=== PATIENT | female | born 1965 | race Caucasian/White ===

== ENCOUNTER 2017-04-09 09:32 | Day surgery (SDC) | payer MEDICAID ==
[~2017-04-09 09:32] MED LIST: Midazolam 1 MG/ML 2 ML SDV ONE; Propofol 200 MG/20 ML SDV ONE; fentaNYL 100 MCG/2 ML SDV ONE
[2017-04-09] MEDS ORDERED: Dextrose 5%-Lactated Ringers 1,000 ML IV SCH (10:00)
[2017-04-09] MEDS ORDERED: Glycopyrrolate 0.2 MG/ML 2 ML SDV IVPUSH ONE (10:30)
[2017-04-09 13:38] VITALS: BP 115/83
--- NOTE | 2017-04-15 09:18 | OR ---
DATE OF PROCEDURE: 04/09/2017 PREOPERATIVE DIAGNOSIS: Weight regain status post Alf-en-Y gastric bypass. POSTOPERATIVE DIAGNOSES: Weight regain status post Alf-en-Y gastric bypass associated with large gastric pouch, gastrojejunostomy, and gastrogastric fistula. OPERATIVE PROCEDURE: Upper GI endoscopy with biopsies of gastric pouch for CLOtest. ANESTHESIA: IV sedation. INDICATION FOR PROCEDURE: This is a 52-year-old female presenting with a history of weight regain status post previous Alf-en-Y gastric bypass. Gastric bypass was done in [place], [place], in 2003. Preoperatively, she weighed 368 pounds and initially had a good result. She was down as low as 129 pounds. This weight is from 02/2012. Over the last year, she had progressive increase in her weight and, presently, with a weight of 305 pounds with a height of 5 feet 4 inches, giving her body mass index of 35.2. The plan is to proceed with an upper GI endoscopy with biopsies as indicated. Potential risks including bleeding and perforation were discussed, and the patient wishes to proceed. DETAILS OF PROCEDURE: The patient was taken to the operating room and placed in a left lateral decubitus position. IV sedation was administered, after which the upper GI endoscope was passed orally through the length of the esophagus and from there into the gastric pouch. The gastric pouch was noted to be markedly enlarged, measuring 11 cm from the gastrojejunostomy to the esophagogastric junction. The gastrojejunostomy was also slightly enlarged. 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 Biopsies were obtained from the gastric pouch and sent for CLOtest for H. pylori. Minimal bleeding from the biopsy sites was seen, and the procedure then concluded. There were no evident complications. The patient appeared to have an anatomic deficiency in terms of her gastric bypass status with large gastric pouch and gastrojejunostomy, as well as a gastrogastric fistula with previous good result, and at present ongoing weight regain. Re-visional procedure appeared to be working. Her insurance carrier will be contacted regarding prior authorization. Junior Bliss MD /[id number]
== END 2017-04-09 13:30 | disposition home or self-care (01) ==
LOC: JP.SDS 09:32
PROVIDERS: ATTEND Surgery
DX: K95.89 Other complications of other bariatric procedure (principal); K31.6 Fistula of stomach and duodenum; Z98.84 Bariatric surgery status
CPT/HCPCS: 43239; 87081; J2250; J2704; J3010; J7042; J3490

== ENCOUNTER 2017-06-11 06:39 | Inpatient (IN) | payer MEDICAID ==
[2017-06-11] MEDS ORDERED: cefOXitin 2 GM Vial ONE (06:45)
[2017-06-11] MEDS ORDERED: Gabapentin 300 MG Cap PO ONE (07:00)
[2017-06-11] MEDS ORDERED: Scopolamine 1.5 MG Transdermal Patch TOP SCH (07:00)
[2017-06-11] MEDS ORDERED: Dextrose 5%-Lactated Ringers 1,000 ML IV SCH (07:00)
[2017-06-11] MEDS ORDERED: Acetaminophen 500 MG Tab PO ONE (07:00)
[2017-06-11] MEDS ORDERED: Celecoxib 200 MG Cap PO ONE (07:00)
[2017-06-11] MEDS ORDERED: Midazolam 1 MG/ML 2 ML SDV ONE (07:55)
[2017-06-11] MEDS ORDERED: fentaNYL 250 MCG/5 ML SDV ONE (07:55)
[2017-06-11] MEDS ORDERED: Glycopyrrolate 0.2 MG/ML 5 ML MDV ONE (07:56)
[2017-06-11] MEDS ORDERED: Dexamethasone 4 MG/ML SDV ONE (07:56)
[2017-06-11] MEDS ORDERED: Rocuronium 50 MG/5 ML Vial ONE ×2 (07:56→09:46)
[2017-06-11] MEDS ORDERED: Neostigmine Methylsulfate 1 MG/ML 5 ML Syringe ONE (07:56)
[2017-06-11] MEDS ORDERED: Ondansetron 4 MG/2 ML SDV ONE (07:56)
[2017-06-11] MEDS ORDERED: Succinylcholine 200 MG/10 ML MDV ONE (07:56)
[2017-06-11] MEDS ORDERED: Propofol 200 MG/20 ML SDV ONE (07:56)
[2017-06-11] MEDS: cefOXitin 2 GM in Sodium Chloride 0.9% 50 ML IV ONE ×2 (08:35→14:07)
[2017-06-11] MEDS ORDERED: Ketamine 500 MG/5 ML MDV IV ONE (09:00)
[2017-06-11] MEDS ORDERED: Lidocaine 2% 100 MG/5 ML Syringe IVPUSH ONE (09:00)
[2017-06-11] MEDS ORDERED: Ropivacaine 48 ML, Dexamethasone 8 MG, EPINEPHrine 0.4 MG, Sodium Chloride 0.9% 29.6 ML NERVRT ONE ×4 (09:00)
[2017-06-11] MEDS ORDERED: Lactated Ringers 1,000 ML ONE (11:05)
[2017-06-11] MEDS ORDERED: fentaNYL 100 MCG/2 ML SDV ONE (11:16)
[2017-06-11] MEDS ORDERED: HYDROmorphone/Normal Saline 15 MG/30 ML PCA IV PRN ×2 (11:30→14:06)
[2017-06-11] MEDS ORDERED: Naloxone 0.4 MG/ML SDV IV PRN (11:30)
[2017-06-11] MEDS ORDERED: hydrOXYzine HCl 100 MG/2 ML SDV IM ONE ×2 (11:42→12:53)
[2017-06-11] MEDS ORDERED: LORazepam 2 MG/ML MDV IVPUSH PRN (11:46)
[2017-06-11] MEDS ORDERED: Meperidine PF 100 MG/ML Syringe IM ONE (12:53)
[2017-06-11] MEDS ORDERED: Cyclobenzaprine 10 MG Tab PO PRN (13:37)
[2017-06-11] MEDS ORDERED: Labetalol 20 MG/4 ML Syringe IVPUSH PRN (14:00)
[2017-06-11] MEDS ORDERED: diphenhydrAMINE 50 MG/ML SDV IVPUSH PRN (14:00)
[2017-06-11] MEDS ORDERED: hydrOXYzine HCl 100 MG/2 ML SDV IM PRN (14:00)
[2017-06-11] MEDS ORDERED: Metoclopramide 10 MG/2 ML SDV IVPUSH PRN (14:00)
[2017-06-11] MEDS ORDERED: Ondansetron 4 MG/2 ML SDV IVPUSH PRN (14:00)
[2017-06-11] MEDS: Lidocaine 0.4%/D5W 2 GM/500 ML BAG IV SCH (14:07)
[2017-06-11] MEDS: Gabapentin 250 MG/5 ML Solution ML 470 ML Bottle PO SCH ×2 (14:11→20:20)
[2017-06-11] MEDS: cefOXitin 2 GM in Sodium Chloride 0.9% 50 ML IV SCH ×2 (14:12→20:20)
[2017-06-11] MEDS: Pantoprazole 40 MG Vial IVPUSH SCH (15:52)
[2017-06-11] MEDS: Acetaminophen Soln 650 MG/20.3 ML UD Cup PO SCH ×2 (15:52→22:06)
[2017-06-11] MEDS ORDERED: MVI, Adult with Vitamin K 10 ML, Thiamine 200 MG, Chromium/Copper/Mang/Selen/Zn 1 ML in... IV SCH ×4 (16:00)
[2017-06-11] MEDS: Heparin Sodium 5,000 Units/ML Vial SUBCUT SCH (17:31)
[2017-06-11] MEDS: Dextrose 5%-Lactated Ringers 1,000 ML IV SCH (22:10)
[2017-06-12] MEDS: Lidocaine 0.4%/D5W 2 GM/500 ML BAG IV SCH (01:25)
[2017-06-12] MEDS: cefOXitin 2 GM in Sodium Chloride 0.9% 50 ML IV SCH ×4 (01:28→20:03)
[2017-06-12] MEDS ORDERED: methylPREDNISolone Sodium Succinate 125 MG/2 ML SDV IVPUSH ONE (02:00)
[2017-06-12] MEDS ORDERED: Iohexol 647 MG/ML 50 ML SDV PO STA (02:16)
[2017-06-12] MEDS: Acetaminophen Soln 650 MG/20.3 ML UD Cup PO SCH ×3 (03:12→16:59)
[2017-06-12] MEDS: Dextrose 5%-Lactated Ringers 1,000 ML IV SCH (05:00)
[2017-06-12] MEDS: Heparin Sodium 5,000 Units/ML Vial SUBCUT SCH ×2 (05:27→18:12)
[2017-06-12] MEDS ORDERED: Dextrose 5%-Lactated Ringers 1,000 ML IV SCH (07:30)
[2017-06-12] MEDS ORDERED: traZODone 50 MG Tab PO PRN (07:32)
[2017-06-12] MEDS ORDERED: hydrOXYzine HCl 25 MG Tab PO PRN (07:32)
[2017-06-12] MEDS: Celecoxib 200 MG Cap PO SCH (08:05)
--- NOTE | 2017-06-12 08:20 | PN ---
DATE OF SERVICE: 06/12/2017 SUBJECTIVE: Faith is postop day #1. She is on IM naltrexone. Pain was difficult to control in the beginning, but now with the CURTAIN WORKER, she has been very comfortable. She has been up ambulating and is on a step-1 gastric bypass diet. Dowell was discontinued this a.m. REVIEW OF SYSTEMS: Remainder of review of systems negative for any pertinent positives and negatives. OBJECTIVE: GENERAL: Faith Pickard is a pleasant 52-year-old female. VITAL SIGNS: TPR is 98.8, 65, 16, and blood pressure 100/63. HEENT: Negative. NECK: Supple. HEART: Regular rate and rhythm. LUNGS: Clear. ABDOMEN: Dressings dry and intact. Abdominal binder is on. IDA drain #1 has put out 7 mL and IDA drain #2 has put out 65 mL of a light pink serosanguineous drainage. EXTREMITIES: SCDs are on. There is no peripheral edema. ASSESSMENT: Open revision of Alf-en-Y gastric bypass surgery including closure of gastrogastric fistula, repair of incarcerated incisional hernia with mesh, suture and sealant to divided area of left lobe of liver for recurrent morbid obesity associated with enlarged gastrogastric pouch and gastrogastric fistula, incarcerated incisional hernia, divided edge of left lobe of liver secondary to takedown of adhesions. Date of surgery, 06/11/2017. PLAN: 1. Decrease IV to 100 mL/hour. 2. Step-2 gastric bypass diet without cereal. 3. To start Estrace vaginal cream, one applicator per vaginal. 4. Prozac 60 mg daily. 5. Hydroxyzine 50 mg p.o. b.i.d. p.r.n. 6. Trazodone 50 mg at bedtime p.r.n. sleep. 7. Good pulmonary toilet. 8. We will evaluate p.r.n. or in a.m. Rosario Bonds PA-C /[id number]
[2017-06-12] MEDS: FLUoxetine 20 MG Cap PO SCH (09:03)
[2017-06-12] MEDS: SCOPOLAMINE PATCH CHECK TOP SCH (09:04)
[2017-06-12] MEDS: Gabapentin 250 MG/5 ML Solution ML 470 ML Bottle PO SCH ×3 (09:06→20:04)
--- NOTE | 2017-06-12 09:16 | CR ---
UGI wo KUB HISTORY: Evaluate Alf-en-Y COMPARISON: None FINDINGS: Contrast is seen in the gastric remnant. On the last images contrast flows to the small bow el past the distal anastomosis of the Alf-en-Y. No extravasation or obstruction seen.
[2017-06-12] MEDS: ESTRADIOL VAG SCH (13:24)
[2017-06-12] MEDS ORDERED: MVI, Adult with Vitamin K 10 ML, Thiamine 200 MG, Chromium/Copper/Mang/Selen/Zn 1 ML in... IV SCH ×4 (16:00)
[2017-06-12] MEDS: Pantoprazole 40 MG Vial IVPUSH SCH (16:59)
[2017-06-13] MEDS: Acetaminophen Soln 650 MG/20.3 ML UD Cup PO SCH ×5 (00:23→21:22)
[2017-06-13] MEDS: cefOXitin 2 GM in Sodium Chloride 0.9% 50 ML IV SCH ×2 (01:56→08:33)
[2017-06-13] MEDS: Heparin Sodium 5,000 Units/ML Vial SUBCUT SCH ×2 (07:06→17:00)
[2017-06-13] MEDS ORDERED: Sodium Chloride 0.9% 10 ML Syringe IV PRN (07:39)
[2017-06-13] MEDS: FLUoxetine 20 MG Cap PO SCH (08:27)
[2017-06-13] MEDS: Celecoxib 200 MG Cap PO SCH (08:27)
[2017-06-13] MEDS: Gabapentin 250 MG/5 ML Solution ML 470 ML Bottle PO SCH ×3 (08:32→21:22)
[2017-06-13] MEDS: HYDROmorphone 2 MG Tab PO PRN ×2 (08:32→16:54)
[2017-06-13] MEDS ORDERED: Cyanocobalamin (Vitamin B12) 1,000 MCG/ML SDV IM ONE (09:00)
[2017-06-13] MEDS ORDERED: Bisacodyl 5 MG Tab PO ONE (09:00)
[2017-06-13] MEDS: SCOPOLAMINE PATCH CHECK TOP SCH (09:37)
[2017-06-13] MEDS: Lansoprazole 30 MG Orally Disintegrating Tab.CR PO SCH (11:48)
[2017-06-14] MEDS: Acetaminophen Soln 650 MG/20.3 ML UD Cup PO SCH ×2 (04:34→09:51)
[2017-06-14] MEDS: Heparin Sodium 5,000 Units/ML Vial SUBCUT SCH (05:16)
[2017-06-14] MEDS: HYDROmorphone 2 MG Tab PO PRN (07:03)
[2017-06-14] MEDS: Lansoprazole 30 MG Orally Disintegrating Tab.CR PO SCH (07:03)
[2017-06-14] MEDS: Celecoxib 200 MG Cap PO SCH (07:03)
[2017-06-14 07:08] VITALS: BP 118/66
--- NOTE | 2017-06-14 07:59 | DISCH ---
ADMISSION DIAGNOSES: Morbid obesity, BMI 35; alcoholism; SP Alf-en-Y gastric bypass surgery; unspecified surgical malabsorption; B12 deficiency; insomnia; anxiety; depression disorder. DISCHARGE DIAGNOSES: Open revision of Alf-en-Y gastric bypass surgery including closure of gastrogastric fistula, repair of incarcerated incisional hernia with mesh, suture and sealant to divided area of left lobe of liver for recurrent morbid obesity associated with enlarged gastrogastric pouch and gastrogastric fistula, incarcerated incisional hernia, divided edge of left lobe of liver secondary to takedown of adhesions. Date of surgery, 06/11/2017. HISTORY: Faith Pickard is a 52-year-old female with recurrence of morbid obesity. An EGD showed a gastrogastric fistula. After preoperative evaluation and discussion of possible risks and possible complications, she wished to proceed with surgical procedure. HOSPITAL COURSE: Faith had her surgery on 06/11/2017. She was on the naltrexone with some difficulty with pain management. She was given a STEREOTYPE CASTER and within 24 hours, her pain was well managed. On postop day #1, she was started on a step-2 gastric bypass diet, then advanced to a step-4 gastric bypass diet as she tolerated it well. Her activity was good. She had no complications. Vital signs were stable. Pain was well managed and she was able to be discharged to home on 06/14/2017. PHYSICAL EXAMINATION: GENERAL: Faith Pcikard is a 52-year-old female. VITAL SIGNS: Height is 5 feet 4.17 inches. Weight is 209 pounds. BMI 35. TPR is 99.4, 65, 16, blood pressure 118/66. HEENT: Negative. NECK: Supple. HEART: Regular rate and rhythm. LUNGS: Clear. ABDOMEN: [place] in place, 4 x 4 over both IDA drain sites. Abdominal binder is on. EXTREMITIES: Without peripheral edema. DISPOSITION: Discharged to home. CONDITION: Stable and improving. FOLLOWUP APPOINTMENT: 06/21/2017 at 9:30 a.m. HOME MEDICATIONS: Tylenol 650 mg q.6 hours x2 weeks; Celebrex 200 mg oral daily, #14, prescription that she picked up that was ordered at a readiness visit; she is to resume her calcium citrate; vitamin B12; Estrace; Prozac; naltrexone; Protonix; multivitamin; vitamin B complex; hydroxyzine 50 mg twice daily; and trazodone 50 mg at bedtime. DIET: After discharge, drink 8 to 10 glasses of water a day. Step-4 gastric bypass diet. ACTIVITIES: No lifting greater than 10 pounds for 2 weeks. Walk 6 times daily inside your home. Driving, do not drive for 2 weeks. May shower. Notify provider if any fever, nausea, or vomiting. Keep site clean and dry. Wear abdominal binder for 6 weeks and then as tolerated. Use incentive spirometer 10 times every hour while awake for 2 weeks. Keep a record of food and liquid intake and bring to clinic appointments.
[2017-06-14] MEDS: FLUoxetine 20 MG Cap PO SCH (08:08)
[2017-06-14] MEDS: ESTRADIOL VAG SCH (08:10)
[2017-06-14] MEDS: Gabapentin 250 MG/5 ML Solution ML 470 ML Bottle PO SCH (08:12)
--- NOTE | 2017-06-16 13:08 | PN ---
DATE OF SERVICE: 06/13/2017 The patient is postop day #2 from a revision of Alf-en-Y gastric bypass. Overall, she appears to be doing well. At this point, oral intake is fairly good. We will go up to step- 4 diet and the patient will be switched over to oral pain medication, exclusively saline lock the IV and give her some bowel stimulation. She may be ready for discharge home tomorrow. Junior Bliss MD /[id number]
--- NOTE | 2017-06-17 10:39 | OR ---
DATE OF PROCEDURE: 06/11/2017 PREOPERATIVE DIAGNOSES: Recurrent morbid obesity associated with enlarged gastric pouch and gastrogastric fistula. POSTOPERATIVE DIAGNOSES: 1. Recurrent morbid obesity associated with enlarged gastric pouch and gastrogastric fistula. 2. Incarcerated incisional hernia. 3. Denuded edge of the left lobe of the liver secondary to takedown of the adhesions. OPERATIVE PROCEDURES: Exploratory laparotomy with: 1. Open revision of Alf-en-Y gastric bypass (61444). 2. Repair of incarcerated incisional hernia (42799). 3. Suture and application of fibrin sealant to the denuded area of left lobe of liver (03607). ANESTHESIA: General. INDICATIONS FOR PROCEDURE: This is a 52-year-old status post Alf-en-Y gastric bypass done in [place], [place]. She presents now for revision. She had a significant weight regain, and recent upper endoscopy showed a very large gastric pouch, along with a gastrogastric fistula. The plan is to proceed with an open laparotomy with repair of the gastrogastric fistula and reduction in the pouch size, along with alteration of the small bowel limb lengths to facilitate additional weight loss. Potential risks of the procedure including bleeding, infection, leaks from various GI tract closures, possibility of problems with frequent loose bowel movements and/or malnutrition related to the small bowel limb length adjustments were gone over, and the patient wishes to proceed. DETAILS OF PROCEDURE: The patient was taken to the operating room and, after general endotracheal anesthesia was induced, was placed in a lithotomy position. Dowell catheter was inserted, after which bilateral transversus abdominis plane blocks were placed in the subcostal location with continuous ultrasound guidance, using the standard solution. The abdomen was then prepped and draped. The previous upper midline incision was then reused and carried down through the full- thickness of the abdominal wall. Upon entering the peritoneal cavity, there was quite a bit in the way of adhesions noted, particularly along the lower edge of the left lobe of the liver. There were extremely dense adhesions. As this area was dissected, there were some denuded areas that had a tendency to bleed, as well as a single point had a bile leak. This area was then repaired with #2-0 chromic liver stitches, and at the conclusion of the procedure, also fibrin sealant was applied. Eventually the area around the gastric pouch was dissected free. An Surendra tube was then passed orally per Anesthesia and positioned across the gastric pouch, into the gastrojejunostomy, and into the infracolic portion of the Alf limb. At that point, using a combination of cautery and blunt dissection, the area of the gastrogastric fistula could be identified, and this area was then encircled and then divided with a ANY black load. This resulted in some reduction of the pouch size. We were careful not to overly tighten the pouch size given the intended modification of the limb lengths as well. At this point, the gastric portion of the procedure appeared to be satisfactorily completed. At this point, the patient's Alf limb was noted to be 100 cm long, and this was then divided flush with the jejunojejunostomy, creating a relatively long biliopancreatic limb. The ileocecal valve was identified and traced back 200 cm, giving a total alimentary length of 300 cm. The Alf limb was then anastomosed to the bowel at that level with [id number] enteroenterostomy using a che, followed by purple load. The area was anastomosed and mesenteric defect then approximated with some 3-0 Vicryl stitch. Finally, the patient's limb lengths included Alf limb of 100 cm, common limb of 200 cm, and biliopancreatic limb of 580 cm. At this point, no further problems were noted. It was noted that, during the course of the dissection on entering the abdomen, the patient had an incarcerated incisional hernia containing some omentum and preperitoneal fat within it. This was divided and sent as a specimen. The midline fascia was then approximated with #2 Vicryl stitch, which included closure of the incisional hernia. The subcutaneous tissue was drained with a 10-Nepali round Kevon-Smalls drain placed inferior to the main incision and sutured to that with a 3-0 Vicryl stitch. The incision was then closed with 2 layers of 3-0 Vicryl stitch deep and summer for the skin. The patient was taken to the recovery room in satisfactory condition. There were no evident complications. Junior Bliss MD /[id number]
== END 2017-06-14 11:00 | disposition home or self-care (01) | DRG 620 ==
LOC: JP.MS 06:39 → JP.SDS 06:39 → JP.2SS 11:15 → EDSTATUS 11:30
PROVIDERS: ADMIT Surgery; ATTEND Surgery
PROC: 0D160ZA Bypass Stomach to Jejunum, Open Approach (ICD-10-PCS; principal; 2017-06-11)
PROC: 0WQF0ZZ Repair Abdominal Wall, Open Approach (ICD-10-PCS; 2017-06-11)
PROC: 0FQ00ZZ Repair Liver, Open Approach (ICD-10-PCS; 2017-06-11)
PROC: 3E0T3BZ Introduction of Anesthetic Agent into Peripheral Nerves and Plexi, Percutaneous Approach (ICD-10-PCS; 2017-06-11)
PROC: 3E0G3GC Introduction of Other Therapeutic Substance into Upper GI, Percutaneous Approach (ICD-10-PCS; 2017-06-11)
DX: E66.01 Morbid (severe) obesity due to excess calories (principal); K43.0 Incisional hernia with obstruction, without gangrene; K31.6 Fistula of stomach and duodenum; K91.2 Postsurgical malabsorption, not elsewhere classified; Z68.36 Body mass index [BMI] 36.0-36.9, adult; R63.5 Abnormal weight gain; Z98.84 Bariatric surgery status; Z98.0 Intestinal bypass and anastomosis status; F10.20 Alcohol dependence, uncomplicated; E53.8 Deficiency of other specified B group vitamins; F41.9 Anxiety disorder, unspecified; F32.9 Major depressive disorder, single episode, unspecified; G47.00 Insomnia, unspecified; K76.89 Other specified diseases of liver; K66.0 Peritoneal adhesions (postprocedural) (postinfection); K31.89 Other diseases of stomach and duodenum; Z88.1 Allergy status to other antibiotic agents; Z88.8 Allergy status to other drugs, medicaments and biological substances; Z91.040 Latex allergy status; Z91.018 Allergy to other foods
CPT/HCPCS: 36415; 74240; 74240-26; 82962; 86850; 86900; 86901; 88302; 94762; A9270-GY; C9113; J0171; J0330; J0694; J1100; J1170; J1644; J2001; J2060; J2175; J2250; J2405; J2704; J2710; J2795; J2930; J3010; J3410; J3411; J3420; J7030; J7042; J7050; J7120